=== PATIENT | female | born 2000 | race African-American/Black ===

== ENCOUNTER 2024-12-04 14:13 | Emergency (ER) | payer MEDICAID ==
[~2024-12-04] VITALS: Ht 152.4 cm; Wt 42.0 kg
[2024-12-04 14:18] VITALS: O2SAT 100
[2024-12-04 14:29] VITALS: BP 116/74; PULSE 85; RESP 14; TEMP 37.1; O2SAT 100
[2024-12-04 15:05] LABS: CLARITY URINE CLEAR (CLEAR); COLOR URINE YELLOW (YELLOW); GLUCOSE URINE NEGATIVE (NEGATIVE); KETONES URINE NEGATIVE (NEGATIVE); LEUKOCYTE ESTERASE URINE NEGATIVE (NEGATIVE); NITRITE URINE NEGATIVE (NEGATIVE); OCCULT BLOOD URINE 3+ (NEGATIVE); PH URINE 7.0 (4.5-8.0); PROTEIN URINE TRACE (NEGATIVE); SPECIFIC GRAVITY URINE 1.022 (1.005-1.030); UROBILINOGEN URINE 1.0 E.U./dL (0.2-1.0)
[2024-12-04 15:48] LABS: BACTERIA URINE 1+; SQUAMOUS EPITHELIAL CELL URINE 2+ /lpf (RARE/1+); WBC URINE 0-2 /hpf (0-2)
== END 2024-12-04 16:24 | disposition left against medical advice (07) ==
LOC: ER 14:40
DX: N93.9 Abnormal uterine and vaginal bleeding, unspecified (principal); Z53.21 Procedure and treatment not carried out due to patient leaving prior to being seen by health care provider
CPT/HCPCS: 81003

== ENCOUNTER 2024-12-04 18:27 | Emergency (ER) | payer MEDICAID ==
[~2024-12-04] VITALS: Ht 152.4 cm; Wt 44.0 kg
[2024-12-04 18:34] VITALS: O2SAT 100
[2024-12-04 19:22] LABS: BASOPHILS % 0.8 % (0.0-2.0); EOSINOPHILS % 1.5 % (0.0-5.0); HEMATOCRIT. 37.3 % (36.0-48.0); HEMOGLOBIN. 12.7 g/dL (12.0-16.0); LYMPHOCYTES % 24.9 % (20.0-50.0); MEAN PLATELET VOLUME 7.0 fl (7.4-10.4); MONOCYTES % 10.6 % (2.0-8.0); NEUTROPHILS % 62.2 % (40.0-76.0); PLATELET 298 x1000/uL (130-400); RED BLOOD CELL COUNT 3.92 mill/uL (4.2-5.4); RED CELL DISTRIBUTION WIDTH 12.8 % (11.6-14.6)
[2024-12-04 19:36] LABS: CREATININE 0.7 mg/dL (0.6-1.0); UREA NITROGEN BLOOD 6 mg/dL (9-23)
[2024-12-04 19:37] LABS: B-HCG QUANTITATIVE 36 mIU/mL (<6)
[2024-12-04 19:38] LABS: ASPARTATE AMINOTRANSFERASE 19 IU/L (<34); BILIRUBIN DIRECT 0.2 mg/dL (<=3.0); BILIRUBIN TOTAL 0.8 mg/dL (0.1-1.0); PROTEIN TOTAL 6.7 g/dL (6.0-8.3)
[2024-12-04 21:17] VITALS: BP 104/74; PULSE 81; RESP 12; TEMP 36.8; O2SAT 100
== END 2024-12-04 22:45 | disposition home or self-care (01) ==
LOC: ER 18:27
DX: O20.0 Threatened abortion (principal); Z3A.01 Less than 8 weeks gestation of pregnancy; W01.0XXA Fall on same level from slipping, tripping and stumbling without subsequent striking against object, initial encounter; Y93.89 Activity, other specified; Y92.89 Other specified places as the place of occurrence of the external cause; Y99.8 Other external cause status
CPT/HCPCS: 36415; 76801; 80048; 80076; 84702; 85025; 86850; 86900; 99284